=== PATIENT | female | born 1950 | race Caucasian/White ===

== ENCOUNTER 2024-05-27 08:49 | Observation (INO) | payer OTHER ==
[~2024-05-27] VITALS: Ht 170.2 cm; Wt 112.4 kg
[2024-05-27 10:25] LABS: BASOPHILS ABSOLUTE AUTO 0.02 K/mm3 (0.00-0.23); BASOPHILS PERCENT AUTO 0 % (0-2); EOSINOPHILS ABSOLUTE AUTO 0.03 K/mm3 (0.00-0.68); EOSINOPHILS PERCENT AUTO 0 % (0-6); Hematocrit 48.1 % (33.0-51.0); Hemoglobin 15.6 g/dL (11.5-16.0); IMMATURE GRAN ABSOLUTE AUTO 0.02 K/mm3 (0.00-0.10); IMMATURE GRAN PERCENT AUTO 0 % (0-1); LYMPHOCYTES ABSOLUTE AUTO 1.82 K/mm3 (0.84-5.20); LYMPHOCYTES PERCENT AUTO 26 % (21-46); MONOCYTES ABSOLUTE AUTO 0.54 K/mm3 (0.16-1.47); MONOCYTES PERCENT AUTO 8 % (4-13); Mean Corpuscular HGB 31.5 pg (26.0-34.0); Mean Corpuscular HGB Conc 32.4 g/dL (31.5-36.5); Mean Corpuscular Volume 97 fL (80-100); NEUTROPHILS ABSOLUTE AUTO 4.71 K/mm3 (1.96-9.15); NEUTROPHILS PERCENT AUTO 66 % (41-73); Platelet Count 265 K/mm3 (150-400); RDW Coefficient Variation 12.7 % (11.7-14.2); RDW Standard Deviation 45.5 fL (35.1-46.3); Red Blood Cell Count 4.96 M/mm3 (3.80-5.20); White Blood Cell Count 7.14 K/mm3 (4.00-11.30)
[2024-05-27 10:47] LABS: Albumin, Blood 3.3 g/dL (3.4-5.0); Albumin/Globulin Ratio 0.8 (0.8-1.8); Bilirubin, Total 0.6 mg/dL (0.1-1.0); Bun/Creatinine Ratio 32.2 (12.0-20.0); Calcium, Blood 9.4 mg/dL (8.5-10.1); Creatinine, Blood 0.47 mg/dL (0.40-1.00); Globulin, Blood 4.3 g/dL (2.2-4.0); Potassium, Blood 4.2 mmol/L (3.5-5.5); Total Protein, Blood 7.6 g/dL (6.4-8.2)
[2024-05-27] MEDS ORDERED: FLU VACC TS2024-25(6MOS UP)/PF 45 MCG/0.5 ML SYRINGE IM SCH (13:05)
[2024-05-27] MEDS ORDERED: Furosemide 10 MG/ML 4ML Vial IV SCH (14:00)
[2024-05-27] MEDS ORDERED: HydrALAZINE HCl 20 MG / ML 1ML Vial IV PRN (14:35)
[2024-05-27] MEDS ORDERED: Nicotine 21 MG PATCH TOP ONE (15:45)
[2024-05-27] MEDS ORDERED: Metoprolol Succinate 25 MG TABCR PO SCH (16:00)
[2024-05-27 16:31] VITALS: BP 176/88
[2024-05-27 16:35] VITALS: BP 172/96
[2024-05-27 17:28] VITALS: BP 153/83
--- NOTE | 2024-05-27 18:56 | NUR ---
SHIFT SUMMARY PT A&OX4. PT ARRIVED BY WHEELCHAIR AT 1624. PT ADMITTED DUE TO CHF. PT BLOOD PRESSURE ON ADMIT WAS 172/96. GAVE PRN APRESOLINE. BP POST WAS 153/83. PT REPORTS NO CHEST PAIN NOR GENERALIZED PAIN. PT HAS OCCASSIONAL COUGH. PT HAS URINARY FREQ. DUE TO RECEIVING LASIX. PT REPORTS GETTING SOB WALKING LONGER DISTANCES. PT ORIENTED TO ROOM AND CALL LUGHT AND FALL PRECAUTIONS. DAUGHTER VISITING. PT ON TELE. PT EATS ADEQUATE. PT IN RECLINER, CALLS APPROPRIATE. CALL LIGHT IN REACH. PT INDEPENDENT IN ROOM. PLAN IS FOR PT TO GET ECHO TOMORROW.
[2024-05-27 19:36] VITALS: BP 146/76
--- NOTE | 2024-05-28 04:06 | NUR ---
BUTCHER'S ASSISTANT SUMMARY BP HIGH NOMAL, BUT TRENDING DOWN (SEE DOC FLOW SHEETS), OTHERWISE VSS. MED TELE SR IN THE 80'S, DENIED CHEST PAIN/DISCOMFORT WHEN ASKED. HAS BEEN RESTING/SLEEPING IN BEDSIDE RECLINER PER CHOICE. ASYMPTOMATIC. SCHEDULED FOR ECHO IN THE AM. CALL LIGHT IN REACH. WILL CONTINUE TO MONITOR.
[2024-05-28 05:19] VITALS: BP 136/78
[2024-05-28 06:53] LABS: Bun/Creatinine Ratio 26.5 (12.0-20.0); Calcium, Blood 9.3 mg/dL (8.5-10.1); Creatinine, Blood 0.53 mg/dL (0.40-1.00); Potassium, Blood 3.5 mmol/L (3.5-5.5); Thyroid Stimulating Hormone 0.507 uIU/mL (0.360-4.800)
[2024-05-28 07:36] VITALS: BP 148/95
[2024-05-28] MEDS ORDERED: Nicotine 21 MG PATCH TOP SCH (09:00)
[2024-05-28] MEDS ORDERED: Enoxaparin 40 MG/0.4 ML SYR SC SCH (09:00)
[2024-05-28] MEDS ORDERED: Losartan Potassium 25 MG Tab PO SCH (09:00)
[2024-05-28] MEDS ORDERED: Furosemide 40 MG Tab PO ONE (09:25)
[2024-05-28] MEDS ORDERED: LOSA25 PO (13:41)
[2024-05-28] MEDS ORDERED: FURO20 PO (13:41)
[2024-05-28] MEDS ORDERED: METO25ER PO (13:42)
[2024-05-28] MEDS ORDERED: NICO21TP TOP (13:42)
[2024-05-28] MEDS ORDERED: POTCHL20ER PO (13:42)
--- NOTE | 2024-05-28 14:26 | NUR ---
DISCHARGE: PT D/C @1400 VIA WHEELCHAIR WITH DAUGHTER. FOLLOW-UP APPOINTMENT MADE BY CASE MANAGEMENT FOR 06-02-24 WITH ARRIVAL TIME AT 1030. [facility] [address] NO QUESTIONS AT TIME OF D/C. IV REMOVED BY FUEL ASSEMBLER W/O COMPLICATIONS. TELE SENT BACK.
== END 2024-05-28 14:00 | disposition home or self-care (01) ==
LOC: ER 08:49 → MEDS 08:50
PROVIDERS: Physician Assistant; Student in an Organized Health Care Education/Training Program; ADMIT Internal Medicine
DX: I11.0 Hypertensive heart disease with heart failure (principal); I50.31 Acute diastolic (congestive) heart failure; R79.1 Abnormal coagulation profile; I34.0 Nonrheumatic mitral (valve) insufficiency; M17.12 Unilateral primary osteoarthritis, left knee; F17.210 Nicotine dependence, cigarettes, uncomplicated; Z86.16 Personal history of COVID-19
CPT/HCPCS: 36415; 71046; 73562-LT; 80048; 80053; 83690; 83880; 84443; 84484; 85025; 85379; 93005; 93010; 93306; 96372; 96374; 96375; 99285-25; A9270; G0378; J0360; J1650; J1940

== ENCOUNTER → 2024-06-02 | Outpatient (CLI) | payer OTHER ==
[~2024-06-02] MED LIST: FURO20 PO; LOSA25 PO; METO25ER PO; NICO21TP TOP; POTCHL20ER PO
[2024-06-02 17:35] LABS: Hematocrit 47.4 % (33.0-51.0); Hemoglobin 15.4 g/dL (11.5-16.0); Mean Corpuscular HGB 31.3 pg (26.0-34.0); Mean Corpuscular HGB Conc 32.5 g/dL (31.5-36.5); Mean Corpuscular Volume 96 fL (80-100); Mean Platelet Volume 9.9 fL (9.1-12.4); Platelet Count 266 K/mm3 (150-400); RDW Coefficient Variation 12.5 % (11.7-14.2); RDW Standard Deviation 44.7 fL (35.1-46.3); Red Blood Cell Count 4.92 M/mm3 (3.80-5.20); White Blood Cell Count 8.87 K/mm3 (4.00-11.30)
[2024-06-02 18:32] LABS: Albumin, Blood 3.2 g/dL (3.4-5.0); Albumin/Globulin Ratio 0.8 (0.8-1.8); Alk Phos 106 U/L (50-136); Anion Gap 9 mmol/L (3-11); Aspartate Aminotrans (AST/SGOT 16 U/L (12-37); Bilirubin, Total 0.3 mg/dL (0.1-1.0); Blood Urea Nitrogen 17 mg/dL (8-24); Bun/Creatinine Ratio 39.7 (12.0-20.0); CHOL/HDL RATIO 3.1; CO2, Blood 26 mmol/L (21-32); Calcium, Blood 9.6 mg/dL (8.5-10.1); Chloride, Blood 108 mmol/L (98-108); Cholesterol 190 mg/dL (50-200); Creatinine, Blood 0.43 mg/dL (0.40-1.00); Globulin, Blood 3.9 g/dL (2.2-4.0); Glomerular Filtration Rate 103 (60-); Glucose, Blood 105 mg/dL (70-99); HDL Cholesterol 62 mg/dL (>39); LDL/HDL RATIO 1.7; Low Density Lipoprotein Chol 107 mg/dL (0-110); Magnesium, Blood 2.3 mg/dL (1.6-2.4); Potassium, Blood 4.3 mmol/L (3.5-5.5); Sodium, Blood 139 mmol/L (136-145); Total Protein, Blood 7.1 g/dL (6.4-8.2); Triglycerides 105 mg/dL (30-160); Very Low Density Lipoprot Chol 21 mg/dL (6-32)
[2024-06-02 18:43] LABS: Alanine Aminotransfer (ALT/SGP 26 U/L (12-78)
== END ==
LOC: LAB 14:26 → LAB SHORT 14:26
DX: Z13.1 Encounter for screening for diabetes mellitus (principal); I50.32 Chronic diastolic (congestive) heart failure
CPT/HCPCS: 80053; 80061; 83036; 83735; 85027

== ENCOUNTER 2024-08-10 22:21 | Inpatient (IN) | payer OTHER ==
[~2024-08-10] VITALS: Ht 170.2 cm; Wt 108.3 kg
[~2024-08-10 22:21] MED LIST changes: +Ticagrelor 90 MG TABLET PO ONE
[2024-08-10] MEDS ORDERED: Clopidogrel Bisulfate 300 MG Cap PO ONE (22:25)
[2024-08-10] MEDS ORDERED: Heparin Sodium 5000 Units/ML 1ML MDV IV ONE (22:35)
[2024-08-10 22:36] LABS: BASOPHILS ABSOLUTE AUTO 0.04 K/mm3 (0.00-0.23); BASOPHILS PERCENT AUTO 0 % (0-2); EOSINOPHILS ABSOLUTE AUTO 0.11 K/mm3 (0.00-0.68); EOSINOPHILS PERCENT AUTO 1 % (0-6); Hematocrit 45.2 % (33.0-51.0); Hemoglobin 14.9 g/dL (11.5-16.0); IMMATURE GRAN ABSOLUTE AUTO 0.06 K/mm3 (0.00-0.10); IMMATURE GRAN PERCENT AUTO 1 % (0-1); LYMPHOCYTES ABSOLUTE AUTO 2.63 K/mm3 (0.84-5.20); LYMPHOCYTES PERCENT AUTO 24 % (21-46); MONOCYTES PERCENT AUTO 7 % (4-13); Mean Corpuscular HGB 31.6 pg (26.0-34.0); Mean Corpuscular Volume 96 fL (80-100); Mean Platelet Volume 9.1 fL (9.1-12.4); NEUTROPHILS ABSOLUTE AUTO 7.53 K/mm3 (1.96-9.15); NEUTROPHILS PERCENT AUTO 67 % (41-73); Platelet Count 245 K/mm3 (150-400); RDW Coefficient Variation 13.3 % (11.7-14.2); RDW Standard Deviation 47.3 fL (35.1-46.3); Red Blood Cell Count 4.72 M/mm3 (3.80-5.20); White Blood Cell Count 11.17 K/mm3 (4.00-11.30)
[2024-08-10] MEDS ORDERED: Verapamil HCL 2.5 MG/ML 2ML Injection ONE (22:37)
[2024-08-10] MEDS ORDERED: FentaNYL Citrate 50 MCG/ML 2 ML Injection ONE (22:37)
[2024-08-10] MEDS ORDERED: NS 250 ML IV ONE (22:38)
[2024-08-10] MEDS ORDERED: Nitroglycerin 2 MG/20 ML BTL ONE (22:38)
[2024-08-10] MEDS ORDERED: NS 2,000 ML IV ONE (22:38)
[2024-08-10] MEDS ORDERED: Heparin Sodium 1000 Units/ML 10ML MDV ONE (22:38)
[2024-08-10] MEDS ORDERED: Midazolam HCl 1MG / ML 2ML Vial ONE ×2 (22:38→23:30)
[2024-08-10] MEDS ORDERED: Atropine Sulfate 0.1 MG/ML 10ML SYR ONE (22:45)
[2024-08-10] MEDS ORDERED: Phenylephrine HCl 100 MCG/ML-NS 10MLSYR (1MG/10ML) ONE (22:45)
[2024-08-10] MEDS ORDERED: Ondansetron HCl 2 MG / ML 2ML Vial IV ONE (22:50)
[2024-08-10] MEDS ORDERED: Morphine Sulfate 4 MG/1 ML Injection IV ONE (22:50)
[2024-08-10 22:55] LABS: Alanine Aminotransfer (ALT/SGP 28 U/L (12-78); Albumin, Blood 3.2 g/dL (3.4-5.0); Albumin/Globulin Ratio 0.9 (0.8-1.8); Alk Phos 114 U/L (50-136); Anion Gap 7 mmol/L (3-11); Aspartate Aminotrans (AST/SGOT 27 U/L (12-37); Bilirubin, Total 0.3 mg/dL (0.1-1.0); Blood Urea Nitrogen 24 mg/dL (8-24); Bun/Creatinine Ratio 38.5 (12.0-20.0); CHOL/HDL RATIO 2.1; CO2, Blood 29 mmol/L (21-32); Calcium, Blood 9.2 mg/dL (8.5-10.1); Chloride, Blood 107 mmol/L (98-108); Cholesterol 146 mg/dL (50-200); Creatinine, Blood 0.62 mg/dL (0.40-1.00); Globulin, Blood 3.7 g/dL (2.2-4.0); Glomerular Filtration Rate 95 (60-); Glucose, Blood 178 mg/dL (70-99); HDL Cholesterol 71 mg/dL (>39); LDL/HDL RATIO 0.8; Low Density Lipoprotein Chol 57 mg/dL (0-110); Magnesium, Blood 2.4 mg/dL (1.6-2.4); Potassium, Blood 4.5 mmol/L (3.5-5.5); Sodium, Blood 138 mmol/L (136-145); Total Protein, Blood 6.9 g/dL (6.4-8.2); Triglycerides 90 mg/dL (30-160); Very Low Density Lipoprot Chol 18 mg/dL (6-32)
[2024-08-10 23:06] LABS: Calcium, Ionized (POC) 1.09 mmol/L (1.10-1.46); Chloride (POC) 108 mmol/L (98-108); Creatinine (POC) 0.7 mg/dL (0.6-1.0); Glucose (ISTAT POC) 166 mg/dL (70-99); Hemoglobin (POC) 15.3 g/dL (12.0-16.0); Potassium (POC) 5.9 mmol/L (3.5-5.5); Sodium (POC) 140 mmol/L (135-148); Total CO2 (POC) 28 mmol/L (21-32)
--- NOTE | 2024-08-10 23:14 | NUR ---
RECEIVED REPORT FROM ER NURSE. BULK OF INFORMATION ON PT READ IN NOTES.
[2024-08-11] VITALS (52 sets, daily range): BP systolic 94–163; BP diastolic 64–133
[2024-08-11] MEDS ORDERED: FentaNYL Citrate 50 MCG/ML 2 ML Injection IV PRN (00:05)
[2024-08-11] MEDS ORDERED: Ondansetron HCl 2 MG / ML 2ML Vial IV PRN (00:05)
[2024-08-11] MEDS ORDERED: FLU VACC TS2024-25(6MOS UP)/PF 45 MCG/0.5 ML SYRINGE IM ONE (00:05)
[2024-08-11] MEDS ORDERED: NS 1,000 ML IV SCH (00:35)
[2024-08-11 03:16] LABS: BASOPHILS ABSOLUTE AUTO 0.02 K/mm3 (0.00-0.23); BASOPHILS PERCENT AUTO 0 % (0-2); EOSINOPHILS PERCENT AUTO 0 % (0-6); Hematocrit 43.9 % (33.0-51.0); Hemoglobin 14.3 g/dL (11.5-16.0); IMMATURE GRAN ABSOLUTE AUTO 0.06 K/mm3 (0.00-0.10); IMMATURE GRAN PERCENT AUTO 1 % (0-1); LYMPHOCYTES ABSOLUTE AUTO 1.19 K/mm3 (0.84-5.20); LYMPHOCYTES PERCENT AUTO 11 % (21-46); MONOCYTES PERCENT AUTO 5 % (4-13); Mean Corpuscular HGB 31.3 pg (26.0-34.0); Mean Corpuscular HGB Conc 32.6 g/dL (31.5-36.5); Mean Corpuscular Volume 96 fL (80-100); Mean Platelet Volume 9.2 fL (9.1-12.4); NEUTROPHILS ABSOLUTE AUTO 9.47 K/mm3 (1.96-9.15); NEUTROPHILS PERCENT AUTO 84 % (41-73); Platelet Count 233 K/mm3 (150-400); RDW Coefficient Variation 13.4 % (11.7-14.2); RDW Standard Deviation 47.8 fL (35.1-46.3); Red Blood Cell Count 4.57 M/mm3 (3.80-5.20); White Blood Cell Count 11.34 K/mm3 (4.00-11.30)
[2024-08-11 03:35] LABS: Albumin, Blood 3.1 g/dL (3.4-5.0); Albumin/Globulin Ratio 0.9 (0.8-1.8); Bilirubin, Total 0.3 mg/dL (0.1-1.0); Bun/Creatinine Ratio 48.6 (12.0-20.0); Calcium, Blood 8.8 mg/dL (8.5-10.1); Creatinine, Blood 0.49 mg/dL (0.40-1.00); Globulin, Blood 3.4 g/dL (2.2-4.0); Potassium, Blood 4.6 mmol/L (3.5-5.5); Total Protein, Blood 6.5 g/dL (6.4-8.2)
[2024-08-11] MEDS ORDERED: JARDIANCE10 MG PO (04:58)
[2024-08-11] MEDS ORDERED: ATOR10 PO (04:59)
[2024-08-11] MEDS ORDERED: Ticagrelor 90 MG TABLET PO SCH (07:00)
[2024-08-11] MEDS ORDERED: Aspirin 81 MG Chew PO SCH (07:00)
[2024-08-11] MEDS ORDERED: Furosemide 10 MG/ML 4ML Vial IV ONE (08:55)
[2024-08-11] MEDS ORDERED: Enoxaparin 40 MG/0.4 ML SYR SC SCH (09:00)
[2024-08-11] MEDS ORDERED: Atorvastatin 40 MG Tab PO SCH (09:00)
--- NOTE | 2024-08-11 09:08 | NUR ---
START OF SHIFT THIS NURSE ASSUME CARE AT APPROXIMATELY 0700. PT IS RESTING IN BED SLIGHTLY AGGITATED. NICOTINE PATCH OFFERED AND DECLINED. PT R RADIAL PCI SITE IS WNL AND C/D/I. PT DENIES ANY PAIN AT SITE AND ANY CHEST PAIN. WILL CONTINUE WITH THE PLAN OF CARE.
[2024-08-11] MEDS ORDERED: Losartan Potassium 25 MG Tab PO SCH (14:00)
[2024-08-11] MEDS ORDERED: Metoprolol Succinate 25 MG TABCR PO SCH (14:00)
--- NOTE | 2024-08-11 17:05 | NUR ---
TRANSFER TO [facility] FROM ICU PT TRANSFERED AT APPROX 1630. PT ORIENTED TO ROOM. CALL LIGHT IN REACH. R RADIAL PCI SITE FREE OF BLEEDING/SWELLING. PT UP IN CHAIR AFTER AMBULATING TO THE BATHROOM. 2 RN SKIN CHECK COMPLETED WITH SANGEETA Mitchell RN WITH NO REMARKABLE NOTATIONS. PT DENIES CP/PRESSURE AT THIS TIME. VISITING WITH FAMILY.
[2024-08-12 00:05] VITALS: BP 121/75
[2024-08-12 04:23] VITALS: BP 142/82
[2024-08-12 04:29] LABS: Bun/Creatinine Ratio 36.6 (12.0-20.0); Calcium, Blood 9.2 mg/dL (8.5-10.1); Creatinine, Blood 0.46 mg/dL (0.40-1.00); Potassium, Blood 3.9 mmol/L (3.5-5.5)
--- NOTE | 2024-08-12 06:32 | NUR ---
PT STABLE THROUGHOUT THE SHIFT. NO REPORTS OF CHEST PAIN OR DYSPNEA. PT AOX4, INDEPENDENT IN ROOM. RT RADIAL SITE REMAINS INTACT. PT HAD GOOD URINARY OUTPUT. VITAL SIGNS WNL. PT HOPEFUL FOR D/C ON DAY SHIFT.
[2024-08-12 07:34] VITALS: BP 121/77
[2024-08-12] MEDS ORDERED: Furosemide 40 MG Tab PO SCH (09:00)
[2024-08-12] MEDS ORDERED: ASPI81CH PO (09:54)
[2024-08-12] MEDS ORDERED: BRILINTA90 M1 PO (09:56)
--- NOTE | 2024-08-12 10:15 | NUR ---
DISCHARGE/SHIFT SUMMARY, PATIENT IS A&OX4. PATIENT SITTING IN RECLINER IN ROOM ANXIOUS TO GO HOME THIS MORNING. CARDIOLOGY IN THIS MORNING AND CLEARED PATIENT FOR DISCHARGE. DOCTOR TLLANG IN TO SEE PATIENT AND ORDERED FOR DISCHARGE. PATIENT REMOVED FROM TELE, PULSE OXOMETER, IV LINES REMOVED BY GEOTHERMAL OPERATIONS ENGINEER. DISCUSSED DISCHARGE WITH PATIENT, WENT OVER NEW MEDICATIONS THAT WERE FAXED TO [facility], RESTRICTIONS FOR RADIAL ARTERY ACCESS AND CARE, AND TO COME BACK TO THE ER IF SYMPTOMS ARISE OR PATIENTS CONDITION WORSENS. PATIENT ACKNOWLEDGED UNDERSTANDING OF DISCHARGE INSTRUCTIONS AND WILL REVIEW DISCHARGE EDUCATION AT HOME. PATIENT LEFT HOSPITAL WITH DAUGHTER, SON AND GRANDSON VIA WHEELCHAIR ESCORT BY GEOTHERMAL OPERATIONS ENGINEER TO PERSONAL VEHICLE FOR DISCHARGE.
== END 2024-08-12 11:25 | disposition home or self-care (01) | DRG 321 ==
LOC: ER 22:21 → ICUE 22:22 → ER 22:27 → ICUE 22:27 → PCU 08-11 16:12
PROVIDERS: Emergency Medicine; Internal Medicine; Internal Medicine Interventional Cardiology; ADMIT Student in an Organized Health Care Education/Training Program
PROC: 027034Z Dilation of Coronary Artery, One Artery with Drug-eluting Intraluminal Device, Percutaneous Approach (ICD-10-PCS; principal; 2024-08-10)
PROC: 4A023N7 Measurement of Cardiac Sampling and Pressure, Left Heart, Percutaneous Approach (ICD-10-PCS; 2024-08-10)
PROC: B2111ZZ Fluoroscopy of Multiple Coronary Arteries using Low Osmolar Contrast (ICD-10-PCS; 2024-08-10)
PROC: B240ZZ3 Ultrasonography of Single Coronary Artery, Intravascular (ICD-10-PCS; 2024-08-10)
DX: I21.09 ST elevation (STEMI) myocardial infarction involving other coronary artery of anterior wall (principal); I50.43 Acute on chronic combined systolic (congestive) and diastolic (congestive) heart failure; Z68.43 Body mass index [BMI] 50.0-59.9, adult; I11.0 Hypertensive heart disease with heart failure; E66.9 Obesity, unspecified; F17.210 Nicotine dependence, cigarettes, uncomplicated; I25.10 Atherosclerotic heart disease of native coronary artery without angina pectoris; I25.82 Chronic total occlusion of coronary artery
CPT/HCPCS: 36415; 76937; 80047; 80048; 80053; 80061; 83735; 84484; 85014; 85025; 85347; 86850; 86900; 86901; 92920; 92978; 93005; 93010; 93458; 94760; 94762; 99152; 99153; 99285-25; A9270; C1725; C1753; C1769; C1874; C1894; C8929; C9606; J0461; J1644; J1650; J1940; J2250; J2270; J2371; J2405; J3010; J7030; J7050; Q9957; Q9967